=== PATIENT | female | born 1950 | race African-American/Black ===

== ENCOUNTER 2017-04-30 13:17 | Emergency (ER) | payer MEDICAID ==
[~2017-04-30] VITALS: Ht 165.1 cm; Wt 80.0 kg
[2017-04-30 13:23] VITALS: BP 96/58
== END 2017-04-30 15:16 | disposition left against medical advice (07) ==
LOC: ER 13:27
DX: R55 Syncope and collapse (principal); Z53.21 Procedure and treatment not carried out due to patient leaving prior to being seen by health care provider

== ENCOUNTER 2018-08-31 14:18 | Emergency (ER) | payer MEDICAID ==
[~2018-08-31] VITALS: Ht 157.5 cm; Wt 82.0 kg
[2018-08-31] MEDS ORDERED: SODIUM CHLORIDE 0.9% 1,000 ML IV ONE (15:17)
[2018-08-31] MEDS ORDERED: ONDANSETRON HCL 4MG/2ML INJ IV NR (15:17)
[2018-08-31 15:57] LABS: BASOPHILS % 1.2 % (0.0-2.0); EOSINOPHILS % 1.8 % (0.0-5.0); HEMOGLOBIN. 14.1 g/dL (12.0-16.0); LYMPHOCYTES % 21.1 % (20.0-50.0); MEAN CORPUSCULAR HEMOGLOBIN 32.2 pg (28.0-32.0); MEAN CORPUSCULAR VOLUME 96.1 fL (81.0-99.0); MEAN PLATELET VOLUME 8.5 fl (7.4-10.4); MONOCYTES % 9.3 % (2.0-8.0); NEUTROPHILS % 66.6 % (40.0-76.0); PLATELET 230 x1000/uL (130-400); RED BLOOD CELL COUNT 4.37 mill/uL (4.2-5.4); RED CELL DISTRIBUTION WIDTH 13.9 % (11.6-14.6)
[2018-08-31 16:02] LABS: CHLORIDE 96 mEq/L (98-107)
[2018-08-31 17:57] LABS: CLARITY URINE TURBID (CLEAR); COLOR URINE DARK YELLOW (YELLOW); KETONES URINE 1+ (NEGATIVE); LEUKOCYTE ESTERASE URINE 3+ (NEGATIVE); NITRITE URINE NEGATIVE (NEGATIVE); OCCULT BLOOD URINE TRACE (NEGATIVE); PH URINE 5.5 (4.5-8.0); PROTEIN URINE 1+ (NEGATIVE); SPECIFIC GRAVITY URINE 1.024 (1.005-1.030)
[2018-08-31] MEDS ORDERED: TRAMADOL 50MG TABLET PO ONE (18:00)
[2018-08-31 18:26] VITALS: BP 136/93
== END 2018-08-31 18:35 | disposition home or self-care (01) ==
LOC: ER 14:18
DX: M79.18 Myalgia, other site (principal); I10 Essential (primary) hypertension; M19.90 Unspecified osteoarthritis, unspecified site; Z90.49 Acquired absence of other specified parts of digestive tract
CPT/HCPCS: 36415; 71045; 80053; 81003; 83880; 84484; 85025; 87077; 87086; 87186; 93005; 96361; 96374; 99284; J2405